=== PATIENT | male | born 1935 | race Caucasian/White ===

== ENCOUNTER → 2016-07-14 | Outpatient (CLI) | payer BC, MEDICARE ==
--- NOTE | 2016-07-14 15:05 | XR ---
EXAMINATION TYPE: 3 views cervical spine plus flexion extension views DATE OF EXAM: 07/14/2016 11:06 AM COMPARISON: 07/06/2015 HISTORY: 80-year-old male cervical intervertebral disc degeneration, injury and surgery about 3 years ago. TECHNIQUE: 5 views FINDINGS: There is bulky endplate spondylosis especially anteriorly. Multilevel uncovertebral joint and facet a rthropathy is present. No predental space widening. The cervicothoracic junction is obscured by the p atient's shoulders and not assessed. There may be some interbody ankylosis across C3-C4 and across C5 -C6 not clearly demonstrated on prior exam. Bulky anterior bridging endplate spondylosis across C4-C5 . Of the visualized portions of the cervical spine. No dynamic subluxation is seen. Patient seems to have a fixed kyphotic curvature of the cervical spine. IMPRESSION: Multilevel advanced spondylotic change. There may be interbody ankylosis across C3-C4 and C5-C6 not c learly seen previously. There is a fixed kyphotic curvature without dynamic subluxation seen. Note th at the cervicothoracic junction is obscured by the patient's shoulders and not assessed.
== END | disposition home or self-care (01) ==
LOC: RADXRMAIN 10:38
PROVIDERS: ATTEND Neurological Surgery
DX: M47.812 Spondylosis without myelopathy or radiculopathy, cervical region (principal); M40.202 Unspecified kyphosis, cervical region
CPT/HCPCS: 72052

== ENCOUNTER → 2016-08-17 | Outpatient (CLI) | payer BC, MEDICARE ==
--- NOTE | 2016-08-17 10:28 | MR ---
EXAMINATION TYPE: MR cervical spine wo con DATE OF EXAM: 08/17/2016 COMPARISON: Prior cervical MRI 10/23/2015, CT cervical spine 10/20/2015 HISTORY: Cervical spondylosis, Neck pain x 1 1/2 years TECHNIQUE: Multiplanar, multisequence images of the cervical spine were acquired. C2-C3: No evidence for degenerative disc disease. No disc bulge/herniation or protrusion. No Canal stenosis. Foramina are patent bilaterally. C3-C4: No evidence for degenerative disc disease. No disc bulge/herniation or protrusion. No Canal stenosis. Foramina are stable, some mild bilateral foraminal encroachment is noted. C4-C5: Small posterior disc herniation causes slight anterior mass effect on the thecal sac. Foramina l encroachment is present bilaterally and is stable. C5-C6: Some mild right-sided foraminal encroachment is present. Small posterior broad-based disc bulg e causes slight anterior mass effect on the thecal sac. C6-C7: Bilateral foraminal encroachment shows a stable appearance. No disc herniation. C7-T1: No evidence for degenerative disc disease. No disc bulge/herniation or protrusion. No Canal stenosis. Foramina are patent bilaterally. Cervical segments are intact. There is normal alignment. Cervical spinal cord is stable, foci of in creased signal are noted at work, C5 as on prior exam. Craniovertebral junction relationships are wi thin normal limits. There is multilevel spondylosis. Loss of disc height is present especially at C3 -4, C5-6, C6-7, C7-T1. Some increased signal at C3-4, C5-6 consistent with calcification. Postop burden ges are noted status post multilevel posterior decompression as on prior exam, there is no significan t spinal stenosis. There is a spinal curvature present. IMPRESSION: Essentially stable findings. 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 Multilevel foraminal encroachment. Scoliosis. Postop changes.
== END | disposition home or self-care (01) ==
LOC: RADMRIMAIN 08:36
PROVIDERS: ATTEND Neurological Surgery
DX: G95.89 Other specified diseases of spinal cord (principal); M41.82 Other forms of scoliosis, cervical region; M47.812 Spondylosis without myelopathy or radiculopathy, cervical region; Z98.890 Other specified postprocedural states
CPT/HCPCS: 72141

== ENCOUNTER → 2016-10-13 | Outpatient (CLI) | payer MEDICARE, BC ==
--- NOTE | 2016-10-13 09:34 | US ---
EXAMINATION TYPE: US kidneys/renal and bladder DATE OF EXAM: 10/13/2016 COMPARISON: NONE CLINICAL HISTORY: 81-year-old male R31.9 Hematuria. Patient states microscopic hematuria, no known hi story of renal complications TECHNIQUE: Multiple sonographic images of the kidneys and bladder were obtained. FINDINGS: Right Kidney: 11.9 x 5.7 x 5.0 cm without hydronephrosis. There is a shadowing echogenic focus measu ring 6 mm in the midpole suggestive of a nonobstructive calculus. Left Kidney: 12.4 x 5.9 x 4.4 cm with mild hydronephrosis. Bladder: Partial distention limits its evaluation. Bilateral Jets seen: Yes IMPRESSION: 1. Mild left-sided hydronephrosis. We note that the left ureteral jet is visualized. 2. 6 mm nonobstructive calculus mid pole right kidney.
== END | disposition home or self-care (01) ==
LOC: RADUSWWP 08:54
PROVIDERS: ATTEND Internal Medicine
DX: N20.0 Calculus of kidney (principal); N13.30 Unspecified hydronephrosis
CPT/HCPCS: 76770

== ENCOUNTER → 2016-10-27 | Outpatient (CLI) | payer MEDICARE, BC ==
[2016-10-27 13:33] LABS: Blood Urea Nitrogen 18 mg/dL (9-20); Non-African American GFR(MDRD) >60 (>60 ml/min/1.73 sqM)
--- NOTE | 2016-10-27 15:06 | CT ---
EXAMINATION TYPE: CT urogram wo/w con DATE OF EXAM: 10/27/2016 COMPARISON: NONE HISTORY: Renal stone Hydronephrosis CT DLP: 1907 mGycm, Automated Exposure Control for Dose Reduction was Utilized. CONTRAST: CT scan of the abdomen and pelvis is performed without oral and without and with IV Contrast, patient injected with 100 ml mL of Omnipaque 300. Three-dimensional volume acquired imaging was performed at the CT scanner. FINDINGS: Visualized portions of the lungs are clear. There is no pleural or pericardial fluid. The h eart is not enlarged. There is a small hiatal hernia. Within the abdomen, the liver spleen and gallbladder are normal. Both adrenal glands are normal. There are parapelvic cysts on the left. No renal calcifications are seen. Both kidneys demonstrate fu nction and are otherwise morphologically normal. Entire right ureter was not visualized. 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 There is fusion of both SI joints. No bony destructive lesi on is seen. The pancreas is unremarkable. The bladder is unremarkable. There is no significant diverticular change and there is no radiographic evidence of diverticulitis. The appendix is not visualized. Small bowel loops are normal. There is no free fluid and no free air identified. IMPRESSION: 1. NO EVIDENCE OF A RENAL MASS. THERE IS NO EVIDENCE OF HYDRONEPHROSIS OR NEPHROLITHIASIS. 2. PARAPELVIC CYSTS IN THE LEFT KIDNEY. 3. INCOMPLETE VISUALIZATION OF THE RIGHT URETER. 4. SMALL HIATAL HERNIA. 5. DIFFUSE DEGENERATIVE DISC DISEASE AND OTHER DEGENERATIVE CHANGES IN THE SPINE.
== END | disposition home or self-care (01) ==
LOC: RADCTMAIN 12:53
PROVIDERS: ATTEND Internal Medicine
DX: N28.1 Cyst of kidney, acquired (principal); K44.9 Diaphragmatic hernia without obstruction or gangrene
CPT/HCPCS: 82565; 84520; 74178; 36415; 74400; Q9967

== ENCOUNTER → 2017-07-31 | Outpatient (CLI) | payer MEDICARE, BC ==
--- NOTE | 2017-08-01 09:56 | P.ARTDOP ---
Arterial Doppler LOWER EXTREMITY ARTERIAL DOPPLER: DATE OF SERVICE: 07/31/2017 Reason for study: Bilateral claudication. Doppler waveforms: Multiphasic bilaterally throughout. Pulse volume recording: Normal configuration. Pressure gradients: Only at the foot level. Ankle-brachial indices: Greater than 1 bilaterally. Toe pressures: 70 on the right, 67 on the left Impression: Normal flow patterns proximally. Decreased toe pressures probably related to vasospastic phenomenon. Distal disease cannot be excluded but unlikely. Clinical correlation recommended..
== END | disposition home or self-care (01) ==
LOC: RADUSWWP 12:07
PROVIDERS: ATTEND Internal Medicine
DX: I73.9 Peripheral vascular disease, unspecified (principal)
CPT/HCPCS: 93923

== ENCOUNTER → 2017-08-11 | Outpatient (CLI) | payer MEDICARE, BC ==
--- NOTE | 2017-08-11 11:44 | MR ---
EXAMINATION TYPE: MR lumbar spine wo con DATE OF EXAM: 08/11/2017 COMPARISON: NONE HISTORY: Intervertebral disc degeneration, lumbar TECHNIQUE: Multiplanar, multisequence images of the lumbar spine were acquired. L1-L2: Posterior extension endplate disc complex causes anterior mass effect on the thecal sac. There is facet arthropathy change. No definite foraminal encroachment. Mild central stenosis. L2-L3: Posterior extension of endplate disc complex causes anterior mass effect on the thecal sac. Th ere is a trefoil appearance of the thecal sac, facet arthropathy is noted bilaterally. On mild centra l stenosis. L3-L4: Posterior broad-based disc bulge, extension of endplate disc complex encroaches somewhat on th e foramina but causes mild anterior mass effect on the thecal sac. Facet arthropathy with hypertrophy ligamentum flavum encroaches on the lateral recesses, mild central stenosis. L4-L5: There is moderate central canal stenosis due to hypertrophic changes of the facets as well as circumferential posterior extension of endplate disc complex which also causes foraminal encroachment bilaterally. A trefoil appearance of the thecal sac is present. L5-S1: Posterior circumferential extension endplate disc complex causes anterior mass effect on the t hecal sac but no significant central stenosis, there is bilateral foraminal encroachment. Facet arthr opathy changes are also present. Lumbar segments are intact. No paraspinal masses are identified. Conus medullaris has a normal appe arance. There is multilevel spondylosis. Endplate discogenic marrow signal changes present with assoc iated loss of disc height signal, multilevel vacuum phenomenon. Retrolisthesis grade 1 L4-5, L5-S1, L 1-2. Suspect parapelvic cysts are associated with the left kidney greater than right. IMPRESSION: Degenerative disc disease, facet arthropathy, multilevel foraminal encroachment and spinal stenosis.
== END | disposition home or self-care (01) ==
LOC: RADMRIMAIN 08:38
PROVIDERS: ATTEND Internal Medicine
DX: M48.061 Spinal stenosis, lumbar region without neurogenic claudication (principal); M51.36 Other intervertebral disc degeneration, lumbar region; M46.86 Other specified inflammatory spondylopathies, lumbar region; M46.87 Other specified inflammatory spondylopathies, lumbosacral region
CPT/HCPCS: 72148

== ENCOUNTER → 2019-11-14 | Outpatient (CLI) | payer MEDICARE, BC ==
--- NOTE | 2019-11-14 14:15 | XR ---
EXAMINATION TYPE: XR ribs bilat w pa chest xray DATE OF EXAM: 11/14/2019 COMPARISON: NONE HISTORY: Pain TECHNIQUE: Single view of the chest 8 views of the ribs are submitted. FINDINGS: The lungs are clear. No Evidence for pneumothorax. No evidence for focal contusion. Medi astinal structures are midline. Evaluation of the ribs fails to demonstrate evidence for displaced r ib fracture or secondary sign of rib fracture. IMPRESSION: Negative study
== END | disposition home or self-care (01) ==
LOC: RADXRMAIN 12:38
PROVIDERS: ATTEND Internal Medicine
DX: R07.81 Pleurodynia (principal)
CPT/HCPCS: 71111

== ENCOUNTER 2019-12-09 10:30 | Inpatient (IN) | payer MEDICARE, BC ==
[2019-12-09 11:29] LABS: Basophils % (A) 0 %; Eosinophils # (A) 0.1 k/uL (0-0.7); Eosinophils % (A) 2 %; HCT 44.3 % (39.0-53.0); HGB 15.1 gm/dL (13.0-17.5); Lymphocytes # (A) 1.6 k/uL (1.0-4.8); Lymphocytes % (A) 26 %; MCH 32.6 pg (25.0-35.0); MCHC 34.1 g/dL (31.0-37.0); MCV 95.7 fL (80.0-100.0); Mean Platelet Volume 6.9; Monocytes # (A) 0.4 k/uL (0-1.0); Monocytes % (A) 6 %; Neutrophils # (A) 3.8 k/uL (1.3-7.7); Neutrophils % (A) 64 %; Platelet Count 214 k/uL (150-450); RBC 4.63 m/uL (4.30-5.90); WBC 5.9 k/uL (3.8-10.6)
[2019-12-09] MEDS ORDERED: HEPARIN SOD,PORK IN 0.45% NACL 25,000 UNIT in 0.45% NACL 1 250ML.BAG IV SCH (11:30)
[2019-12-09] MEDS ORDERED: HEPARIN SODIUM,PORCINE 5,000 UNIT/ML 1 ML VIAL IV PRN (11:30)
[2019-12-09] MEDS ORDERED: HEPARIN SODIUM,PORCINE 5,000 UNIT/ML 1 ML VIAL IV ONE (11:30)
[2019-12-09] MEDS ORDERED: DILTIAZEM 125 MG in SODIUM CHLORIDE 0.9% 100 ML IV SCH (11:30)
--- NOTE | 2019-12-09 11:31 | XR ---
EXAMINATION TYPE: XR chest 2V DATE OF EXAM: 12/09/2019 COMPARISON: 11/14/2019 HISTORY: 84-year-old male dysrhythmia TECHNIQUE: PA and lateral views FINDINGS: The cardiomediastinal silhouette, aorta, and pulmonary vasculature are within normal limits. Lungs an d pleural spaces are clear. Bridging anterior endplate spondylosis suggesting DISH. IMPRESSION: No acute cardiopulmonary process.
[2019-12-09 11:37] LABS: Albumin 4.1 g/dL (3.5-5.0); Calcium 9.2 mg/dL (8.4-10.2); Magnesium 1.9 mg/dL (1.6-2.3); Potassium 4.3 mmol/L (3.5-5.1); Total Bilirubin 1.1 mg/dL (0.2-1.3); Total Protein 6.9 g/dL (6.3-8.2)
[2019-12-09 11:54] LABS: D-Dimer 0.5 mg/L FEU (<0.60); Prothrombin Time 10.2 sec (9.0-12.0)
--- NOTE | 2019-12-09 13:09 | ED ---
Arrhythmia/Palpitations HPI - General Chief Complaint: Arrhythmia/Palpitations Stated Complaint: Abd/Back Pain, Irregular Heartbeat Time Seen by Provider: 12/09/19 11:00 Source: patient, RN/MD, RN notes reviewed Mode of arrival: ambulatory Limitations: no limitations - History of Present Illness Initial Comments: This is a 84-year-old male with no prior history of atrial fibrillation who was seen in his doctor's office today for left-sided chest discomfort sharp in nature. He was found have atrial fibrillation with a rapid ventricular response. Left rib pain been going on for couple days he does not recall any particular incident that triggered it. He does have a history of hypertension and high cholesterol. No thyroid disorders no other complaints or modifying factors at this time MD Complaint: rapid heart beat, atrial fibrillation - Related Data Home Medications Medication Instructions Recorded Confirmed Doxazosin [Cardura] 4 mg PO BID 11/21/14 12/09/19 Atorvastatin [Lipitor] 20 mg PO HS 12/09/19 12/09/19 Pantoprazole Sodium [Protonix] 40 mg PO DAILY 12/09/19 12/09/19 Allergies Allergy/AdvReac Type Severity Reaction Status Date / Time No Known Allergies Allergy Verified 12/09/19 11:15 Review of Systems ROS Statement: Those systems with pertinent positive or pertinent negative responses have been documented in the HPI. ROS Other: All systems not noted in ROS Statement are negative. Past Medical History Past Medical History: Hypertension Additional Past Medical History / Comment(s): irregular heart beat History of Any Multi-Drug Resistant Organisms: None Reported Past Surgical History: Joint Replacement Additional Past Surgical History / Comment(s): bilateral knee replacements Past Psychological History: No Psychological Hx Reported Smoking Status: Never smoker Past Alcohol Use History: Daily Past Drug Use History: None Reported General Exam - General Exam Comments Initial Comments: This is a well-developed well-nourished awake alert oriented 3 male Limitations: no limitations General appearance: alert, in no apparent distress Head exam: Present: atraumatic, normocephalic, normal inspection Eye exam: Present: normal appearance, PERRL, EOMI. Absent: scleral icterus, conjunctival injection, periorbital swelling ENT exam: Present: normal exam, mucous membranes moist Neck exam: Present: normal inspection. Absent: tenderness, meningismus, lymphadenopathy Respiratory exam: Present: normal lung sounds bilaterally. Absent: respiratory distress, wheezes, rales, rhonchi, stridor Cardiovascular Exam: Present: tachycardia, irregular rhythm. Absent: systolic murmur, diastolic murmur, rubs, gallop, clicks GI/Abdominal exam: Present: soft, normal bowel sounds. Absent: distended, tenderness, guarding, rebound, rigid Extremities exam: Present: normal inspection, full ROM, normal capillary refill. Absent: tenderness, pedal edema, joint swelling, calf tenderness Back exam: Present: normal inspection Neurological exam: Present: alert, oriented X3, CN II-XII intact Psychiatric exam: Present: normal affect, normal mood Skin exam: Present: warm, dry, intact, normal color. Absent: rash Course Vital Signs 12/09/19 10:40 Temperature 98.1 F Pulse Rate 67 Respiratory 18 Rate Blood Pressure 155/87 O2 Sat by Pulse 100 Oximetry - Reevaluation(s) Reevaluation #1: 12/09/19 13:10 Reevaluation patient reveals some improvement in the rate he still nature fibrillation he is asymptomatic otherwise. EKG Findings - EKG Results: EKG: interpreted by ANDIE (Atrial fibrillation with a rapid ventricular response rate of 118 QRS 80 QT since QTC 312/[address]-T wave changes) Medical Decision Making - Medical Decision Making I had previously discuss case with Dr. Harden the patient d-dimer is negative the patient will be admitted with cardiology consultation also echocardiogram to be ordered - Lab Data Result diagrams: 12/09/19 10:46 12/09/19 10:46 Lab Results 12/09/19 12/09/19 12/09/19 Range/Units 10:46 10:46 10:46 WBC 5.9 (3.8-10.6) k/uL RBC 4.63 (4.30-5.90) m/uL Hgb 15.1 (13.0-17.5) gm/dL Hct 44.3 (39.0-53.0) % MCV 95.7 (80.0-100.0) fL MCH 32.6 (25.0-35.0) pg MCHC 34.1 (31.0-37.0) g/dL RDW 12.0 (11.5-15.5) % Plt Count 214 (150-450) k/uL Neutrophils % 64 % Lymphocytes % 26 % Monocytes % 6 % Eosinophils % 2 % Basophils % 0 % Neutrophils # 3.8 (1.3-7.7) k/uL Lymphocytes # 1.6 (1.0-4.8) k/uL Monocytes # 0.4 (0-1.0) k/uL Eosinophils # 0.1 (0-0.7) k/uL Basophils # 0.0 (0-0.2) k/uL PT 10.2 (9.0-12.0) sec INR 1.0 (<1.2) APTT 25.0 (22.0-30.0) sec D-Dimer 0.50 (<0.60) mg/L FEU Sodium 138 (137-145) mmol/L Potassium 4.3 (3.5-5.1) mmol/L Chloride 108 H (98-107) mmol/L Carbon Dioxide 23 (22-30) mmol/L Anion Gap 7 mmol/L BUN 15 (9-20) mg/dL Creatinine 1.01 (0.66-1.25) mg/dL Est GFR (CKD-EPI)AfAm 80 (>60 ml/min/1.73 sqM) Est GFR (CKD-EPI)NonAf 69 (>60 ml/min/1.73 sqM) Glucose 125 H (74-99) mg/dL Calcium 9.2 (8.4-10.2) mg/dL Magnesium 1.9 (1.6-2.3) mg/dL Total Bilirubin 1.1 (0.2-1.3) mg/dL AST 30 (17-59) U/L ALT 27 (4-49) U/L Alkaline Phosphatase 78 (38-126) U/L Creatine Kinase 168 (55-170) U/L Troponin I (0.000-0.034) ng/mL Total Protein 6.9 (6.3-8.2) g/dL Albumin 4.1 (3.5-5.0) g/dL TSH 3.640 (0.465-4.680) mIU/L 12/09/19 Range/Units 10:46 WBC (3.8-10.6) k/uL RBC (4.30-5.90) m/uL Hgb (13.0-17.5) gm/dL Hct (39.0-53.0) % MCV (80.0-100.0) fL MCH (25.0-35.0) pg MCHC (31.0-37.0) g/dL RDW (11.5-15.5) % Plt Count (150-450) k/uL Neutrophils % % Lymphocytes % % Monocytes % % Eosinophils % % Basophils % % Neutrophils # (1.3-7.7) k/uL Lymphocytes # (1.0-4.8) k/uL Monocytes # (0-1.0) k/uL Eosinophils # (0-0.7) k/uL Basophils # (0-0.2) k/uL PT (9.0-12.0) sec INR (<1.2) APTT (22.0-30.0) sec D-Dimer (<0.60) mg/L FEU Sodium (137-145) mmol/L Potassium (3.5-5.1) mmol/L Chloride (98-107) mmol/L Carbon Dioxide (22-30) mmol/L Anion Gap mmol/L BUN (9-20) mg/dL Creatinine (0.66-1.25) mg/dL Est GFR (CKD-EPI)AfAm (>60 ml/min/1.73 sqM) Est GFR (CKD-EPI)NonAf (>60 ml/min/1.73 sqM) Glucose (74-99) mg/dL Calcium (8.4-10.2) mg/dL Magnesium (1.6-2.3) mg/dL Total Bilirubin (0.2-1.3) mg/dL AST (17-59) U/L ALT (4-49) U/L Alkaline Phosphatase (38-126) U/L Creatine Kinase (55-170) U/L Troponin I <0.012 (0.000-0.034) ng/mL Total Protein (6.3-8.2) g/dL Albumin (3.5-5.0) g/dL TSH (0.465-4.680) mIU/L - Radiology Data Radiology results: report reviewed (Imaging reviewed no acute findings), image reviewed Critical Care Time Critical Care Time: Yes Total Critical Care Time: 35 Critical Care Time: Critical care time includes initial presentation with history physical labs x- rays multiple reevaluation the patient to responsive therapy discussion with the admitting physician review of old charting admission orders documentation of the above Disposition Clinical Impression: Rapid atrial fibrillation, Atypical chest pain Disposition: ADMITTED IP TO THIS [facility] Condition: Fair Referrals: Melecio Harden MD [Primary Care Provider] - 1-2 days
[2019-12-09] MEDS ORDERED: NALOXONE 0.4 MG/ML 1 ML VIAL IV PRN (13:12)
[2019-12-09] MEDS: DILTIAZEM 125 MG in SODIUM CHLORIDE 0.9% 100 ML IV SCH (13:51)
[2019-12-09] MEDS ORDERED: INFLUENZA VACCINE (6 MOS+) 60 MCG/0.5 ML SYRINGE IM ONE (13:57)
--- NOTE | 2019-12-09 15:28 | P.HPIM ---
History of Present Illness H&P Date: 12/09/19 Chief Complaint: Atrial fibrillation This is an 84-year-old male patient of Dr. Harden with past medical history of hypertension, hyperlipidemia, gastroesophageal reflux disease, generalized osteoarthritis status post bilateral knee replacements, benign prostatic hypertrophy, daily alcohol use. Patient states about 3-4 weeks ago he was having some left sided chest discomfort and we'll completed a Medrol Dosepak. He was in the office yesterday for recheck and it was noted he had irregular heartbeat and EKG was done which confirmed atrial fibrillation. Patient was sent into [facility] emergency center for evaluation. Patient denies having any palpitations, lightheadedness, dizziness, chest pain, shortness of breath, cough, and no fever or chills. EKG was atrial fibrillation with heart rate of 118. Chest x-ray showed no acute cardiac pulmonary process. CBC was unremarkable. Blood sugar 125 otherwise CMP unremarkable. Troponin 0.012. TSH 3.640. Patient was started on Cardizem drip, heparin drip and admitted to the cardiac stepdown unit, cardiology consult requested. Patient does not have a policewoman. He has never had a stress test nor heart catheterization. Review of Systems Constitutional: Denies anorexia, Denies chills, Denies daytime sleepiness, Denies fatigue, Denies fever, Denies lethargy, Denies malaise, Denies poor appetite, Denies weakness Eyes: denies blurred vision, denies pain Ears, nose, mouth and throat: Denies dysphagia, Denies headache, Denies nasal congestion, Denies nasal discharge, Denies sore throat, Denies vertigo Cardiovascular: Reports irregular heart beat, Denies chest pain, Denies dyspnea on exertion, Denies edema, Denies leg edema, Denies lightheadedness, Denies orthopnea, Denies palpitations, Denies paroxysmal nocturnal dyspnea, Denies shortness of breath, Denies syncope Respiratory: Denies cough, Denies cough with sputum, Denies dyspnea, Denies excessive sputum, Denies hemoptysis, Denies home oxygen, Denies respiratory infections, Denies sleep apnea, Denies wheezing Gastrointestinal: Denies abdominal pain, Denies bloating, Denies diarrhea, Denies loss of appetite, Denies nausea, Denies vomiting Genitourinary: Denies dysuria, Denies urinary frequency, Denies urinary retention Musculoskeletal: Denies frequent falls, Denies gait dysfunction, Denies muscle weakness, Denies myalgias Integumentary: Denies pruritus, Denies rash, Denies wounds Neurological: Denies change in mentation, Denies change in speech, Denies confusion, Denies headaches, Denies numbness, Denies seizures, Denies weakness Psychiatric: Denies anxiety, Denies depression Endocrine: Denies fatigue, Denies weight change Past Medical History Past Medical History: GERD/Reflux, Hyperlipidemia, Hypertension, Osteoarthritis (OA), Prostate Disorder Additional Past Medical History / Comment(s): Arthritis in multiple joints, chr onic low back and cervical pain, BPH History of Any Multi-Drug Resistant Organisms: None Reported Past Surgical History: Joint Replacement, Orthopedic Surgery Additional Past Surgical History / Comment(s): Bilateral knee arth roscopies/arthroplasties, laminectomy C3 through C7, colonoscopy. Past Anesthesia/Blood Transfusion Reactions: No Reported Reaction Smoking Status: Never smoker Additional Past Alcohol Use History / Comment(s): Patient is a lifelong nonsmoker. He states he drinks an average of 2 beers per day. He denies any marijuana or street drug use. He lives at home with his . He does not have cane or walker for ambulation. He does not use oxygen, nebulizer, CPAP. - Past Family History Father History Unknown: Yes Additional Family Medical History / Comment(s): The patient's father has passed. He does not know much of his history other then he had alcohol abuse issues. Mother Family Medical History: CVA/TIA Additional Family Medical History / Comment(s): Mother had a stroke after a fall while in her 90s and passed subsequently. Sister(s) Additional Family Medical History / Comment(s): Patient has 1 sister. She is living with history of dementia. Patient does not have any brothers. Patient has one son with no major medical problems and one daughter with celiac and osteoporosis Medications and Allergies Home Medications Medication Instructions Recorded Confirmed Type Doxazosin [Cardura] 4 mg PO BID 11/21/14 12/09/19 History Atorvastatin [Lipitor] 20 mg PO HS 12/09/19 12/09/19 History Pantoprazole Sodium [Protonix] 40 mg PO DAILY 12/09/19 12/09/19 History Allergies Allergy/AdvReac Type Severity Reaction Status Date / Time No Known Allergies Allergy Verified 12/09/19 11:15 Physical Exam Vitals: Vital Signs Temp Pulse Resp BP Pulse Ox 12/09/19 13:19 98.0 F 93 17 136/81 98 12/09/19 10:40 98.1 F 67 18 155/87 100 Intake and Output 12/09/19 12/09/19 12/09/19 06:59 14:59 22:59 Other: Weight 74.843 kg PHYSICAL EXAMINATION Gen: This is an 84-year-old male. He is resting in bed and appears to be comfortable and in no acute distress. is at bedside. HEENT: Head is atraumatic, normocephalic. Pupils equal, round. Sclerae is anicteric. Oral mucous members are moist. NECK: Supple. No JVD. No lymphadenopathy. No thyromegaly. LUNGS: Clear to auscultation. No wheezes or rhonchi. No intercostal retractions. HEART: Irregularly irregular rate and rhythm. No murmur. Heart rate is controlled. ABDOMEN: Soft. Bowel sounds are present. No masses. No tenderness. EXTREMITIES: No pedal edema. No calf tenderness. Dorsalis pedis +2 bilaterally. NEUROLOGICAL: Patient is awake, alert and oriented x3. Cranial nerves 2 through 12 are grossly intact. Results CBC & Chem 7: 12/09/19 10:46 12/09/19 10:46 Labs: Abnormal Lab Results - Last 24 Hours (Table) 12/09/19 Range/Units 10:46 Chloride 108 H (98-107) mmol/L Glucose 125 H (74-99) mg/dL Thrombosis Risk Factor Assmnt - DVT/VTE Prophylaxis DVT/VTE Prophylaxis: Pharmacologic Prophylaxis ordered - Choose All That Apply Any of the Below Risk Factors Present?: Yes Other Risk Factors: Yes Each Risk Factor Represents 3 Points: Age 75 years or older Other congenital or acquired thrombophilia - If yes, enter type in comment: No Thrombosis Risk Factor Assessment Total Risk Factor Score: 3 Thrombosis Risk Factor Assessment Level: Moderate Risk Assessment and Plan Plan: ASSESSMENT AND PLAN 1. New onset atrial fibrillation with RVR, paroxysmal atrial fibrillation. Patient is currently on Cardizem drip and heparin drip. Rate is currently controlled. Cardiology consult and echocardiogram. 2. Hyperlipidemia. Continue Lipitor 20 mg daily. 3. Hypertension. Continue Cardura. 4. Benign prostatic hypertrophy. Monitor for urinary retention. Continue Cardura 4 mg daily. 5. Gastroesophageal reflux disease and GI prophylaxis. Continue Protonix 40 mg daily.. 6. Daily alcohol use. Monitor closely for DTs. 7. DVT prophylaxis. Heparin drip. Patient will be admitted to the hospital for a minimum of 2 night stay. Discharge plan: home. Impression and plan of care have been directed as dictated by the signing physician. Sherry Godoy nurse practitioner acting as scribe for signing phys ician.
[2019-12-09] MEDS: METOPROLOL TARTRATE 25 MG TAB PO SCH (16:12)
[2019-12-09] MEDS: DOXAZOSIN 4 MG TAB PO SCH (20:45)
[2019-12-09] MEDS ORDERED: ATORVASTATIN 20 MG TAB PO SCH (21:00)
[2019-12-10] MEDS: DILTIAZEM 125 MG in SODIUM CHLORIDE 0.9% 100 ML IV SCH (03:39)
[2019-12-10] MEDS ORDERED: PANTOPRAZOLE 40 MG TABLET PO SCH (07:30)
[2019-12-10 07:49] LABS: Basophils % (A) 1 %; Eosinophils # (A) 0.2 k/uL (0-0.7); Eosinophils % (A) 3 %; HCT 39.1 % (39.0-53.0); HGB 13.4 gm/dL (13.0-17.5); Lymphocytes # (A) 2.4 k/uL (1.0-4.8); Lymphocytes % (A) 37 %; MCH 33.3 pg (25.0-35.0); MCHC 34.2 g/dL (31.0-37.0); MCV 97.3 fL (80.0-100.0); Mean Platelet Volume 7.1; Monocytes # (A) 0.4 k/uL (0-1.0); Monocytes % (A) 6 %; Neutrophils # (A) 3.3 k/uL (1.3-7.7); Neutrophils % (A) 52 %; Platelet Count 206 k/uL (150-450); RBC 4.02 m/uL (4.30-5.90); RDW 12.2 % (11.5-15.5); WBC 6.3 k/uL (3.8-10.6)
[2019-12-10] MEDS: DOXAZOSIN 4 MG TAB PO SCH (09:05)
[2019-12-10] MEDS ORDERED: METOPROLOL TARTRATE 12.5 MG TAB PO SCH (09:15)
[2019-12-10] MEDS: METOPROLOL TARTRATE 25 MG TAB PO SCH (09:28)
[2019-12-10 09:33] VITALS: PULSE 73
--- NOTE | 2019-12-10 10:44 | P.CRDCN ---
History of Present Illness Consult date: 12/10/19 History of present illness: CHIEF COMPLAINT: new-onset A. fib HISTORY OF PRESENT ILLNESS: This is a 84-year old male with a past medical history significant for hypertension and hyperlipidemia. Patient does not follow with a safety engineer. We have been asked to see the patient in consultation for new-onset atrial fibrillation. Patient states he has been having some left sided back pain for approximately one month. He originally saw his primary care physician for this and was placed on steroids. He went back to his primary care physician yesterday for a follow-up. He had an EKG completed at that time revealing atrial fibrillation. Patient denies previous history of atrial fibrillation. He currently denies chest pain or pressure. Denies shortness of breath. Denies palpitations. DIAGNOSTICS: EKG reveals atrial fibrillation with rapid ventricular rate Chest xray negative for acute process Laboratory data: WBC 6.3. Hemoglobin 13.4. Platelet count 206. D-dimer 0.5. Sodium 138. Potassium 4.3. BUN 15. Creatinine 1.01. Magnesium 1.9. TSH 3.640 Current home cardiac medications include Lipitor 20 mg daily and Cardura 4 mg twice a day REVIEW OF SYSTEMS: At the time of my exam: CONSTITUTIONAL: Denies fever or chills. HEENT: Denies blurred vision, vision changes, or eye pain. Denies hemoptysis CARDIOVASCULAR: Denies chest pain, orthopnea, PND or palpitations RESPIRATORY: No shortness of breath. GASTROINTESTINAL: Denies abdominal pain. Denies nausea or vomiting. HEMATOLOGIC: Denies bleeding disorders. GENITOURINARY: Denies any blood in urine. SKIN: Denies pruitis. Denies rash. PHYSICAL EXAM: VITAL SIGNS: Reviewed. GENERAL: Well-developed in no acute distress. HEENT: Head is normocephalic. Pupils are equal, round. Sclerae anicteric. Mucous membranes of the mouth are moist. Neck supple. No JVD or thyromegaly LUNGS: Respirations even and unlabored. Lungs essentially clear to auscultation bilaterally. HEART: Regular rate and rhythm. S1 and S2 heard. ABDOMEN: Soft. Nondistended. Nontender. EXTREMITIES: Normal range of motion. No clubbing or cyanosis. Peripheral pulses intact. No lower extremity edema NEUROLOGIC: Awake and alert. Oriented x 3. ASSESSMENT: New-onset paroxysmal atrial fibrillation with RVR Hypertension Hyperlipidemia PLAN: Obtain 2-D echo to assess cardiac structure and function Continue Cardura and Lipitor Patient has since converted to sinus mechanism with some bradycardia over night. Decrease metoprolol to 12.5 mg twice a day Case management checked coverage for anticoagulation. Patient agreeable to Xarelto cost. Continue IV heparin until patient receives a dose of Xarelto Patient may be discharged home today from a cardiac perspective. He is to follow up outpatient Nurse practitioner note has been reviewed by physician. Signing provider agrees with the documented findings, assessment, and plan of care. Past Medical History Past Medical History: GERD/Reflux, Hyperlipidemia, Hypertension, Osteoarthritis (OA), Prostate Disorder Additional Past Medical History / Comment(s): Arthritis in multiple joints, chronic low back and cervical pain, BPH History of Any Multi-Drug Resistant Organisms: None Reported Past Surgical History: Joint Replacement, Orthopedic Surgery Additional Past Surgical History / Comment(s): Bilateral knee arthroscopies/arthroplasties, laminectomy C3 through C7, colonoscopy. Past Anesthesia/Blood Transfusion Reactions: No Reported Reaction Smoking Status: Never smoker Additional Past Alcohol Use History / Comment(s): Patient is a lifelong nonsmoker. He states he drinks an average of 2 beers per day. He denies any marijuana or street drug use. He lives at home with his . He does not have cane or walker for ambulation. He does not use oxygen, nebulizer, CPAP. - Past Family History Father History Unknown: Yes Additional Family Medical History / Comment(s): The patient's father has passed. He does not know much of his history other then he had alcohol abuse issues. Mother Family Medical History: CVA/TIA Additional Family Medical History / Comment(s): Mother had a stroke after a fall while in her 90s and passed subsequently. Sister(s) Additional Family Medical History / Comment(s): Patient has 1 sister. She is living with history of dementia. Patient does not have any brothers. Patient has one son with no major medical problems and one daughter with celiac and osteoporosis Medications and Allergies Home Medications Medication Instructions Recorded Confirmed Type Doxazosin [Cardura] 4 mg PO BID 11/21/14 12/09/19 History Atorvastatin [Lipitor] 20 mg PO HS 12/09/19 12/09/19 History Pantoprazole Sodium [Protonix] 40 mg PO DAILY 12/09/19 12/09/19 History Rivaroxaban [Xarelto] 20 mg PO DAILY #30 tab 12/10/19 Rx Allergies Allergy/AdvReac Type Severity Reaction Status Date / Time No Known Allergies Allergy Verified 12/09/19 11:15 Physical Exam Vitals: Vital Signs Temp Pulse Pulse Resp BP BP Pulse Ox 12/10/19 08:00 97.5 F L 73 14 166/72 100 12/10/19 03:52 98.2 F 68 16 138/67 95 12/10/19 00:47 98.4 F 50 L 16 121/55 99 12/09/19 20:00 98.5 F 59 L 16 138/64 96 12/09/19 15:18 97.6 F 90 14 132/81 97 12/09/19 13:19 98.0 F 93 17 136/81 98 12/09/19 10:40 98.1 F 67 18 155/87 100 Intake and Output 12/09/19 12/10/19 12/10/19 22:59 06:59 14:59 Intake Total 480 467 120 Balance 480 467 120 Intake: Intake, IV Titration 107 Amount Heparin Sod,Pork in 0.45% 107 NaCl 25,000 unit In 0.45 % NaCl 1 250ml.bag @ 12 UNITS/KG/HR 8.981 mls/hr IV .Q24H [facility] Rx#: [id number] Oral 480 360 120 Other: # Voids 1 1 0 # Bowel Movements 0 Weight 75 kg Results 12/10/19 06:29 12/09/19 10:46 Cardiac Enzymes 12/09/19 12/09/19 Range/Units 10:46 10:46 AST 30 (17-59) U/L Troponin I <0.012 (0.000-0.034) ng/mL Coagulation 12/09/19 12/09/19 12/10/19 Range/Units 10:46 17:01 06:29 PT 10.2 (9.0-12.0) sec APTT 25.0 58.6 H 55.2 H (22.0-30.0) sec CBC 12/09/19 12/10/19 Range/Units 10:46 06:29 WBC 5.9 6.3 (3.8-10.6) k/uL RBC 4.63 4.02 L (4.30-5.90) m/uL Hgb 15.1 13.4 (13.0-17.5) gm/dL Hct 44.3 39.1 (39.0-53.0) % Plt Count 214 206 (150-450) k/uL Comprehensive Metabolic Panel 12/09/19 Range/Units 10:46 Sodium 138 (137-145) mmol/L Potassium 4.3 (3.5-5.1) mmol/L Chloride 108 H (98-107) mmol/L Carbon Dioxide 23 (22-30) mmol/L BUN 15 (9-20) mg/dL Creatinine 1.01 (0.66-1.25) mg/dL Glucose 125 H (74-99) mg/dL Calcium 9.2 (8.4-10.2) mg/dL AST 30 (17-59) U/L ALT 27 (4-49) U/L Alkaline Phosphatase 78 (38-126) U/L Total Protein 6.9 (6.3-8.2) g/dL Albumin 4.1 (3.5-5.0) g/dL Current Medications Generic Name Dose Route Start Last Admin Trade Name Freq PRN Reason Stop Dose Admin Atorvastatin Calcium 20 mg 12/09/19 21:00 12/09/19 20:45 Atorvastatin 20 Mg Tab PO 20 mg HS TAURUS Administration Doxazosin Mesylate 4 mg 12/09/19 21:00 12/10/19 09:05 Doxazosin 4 Mg Tab PO 4 mg BID TAURUS Administration Heparin Sodium (Porcine) 0 unit 12/09/19 11:30 Heparin Sodium,Porcine 5,000 Unit/Ml 1 Ml Vial IV PER PROTOCOL PRN Low PTT Protocol Heparin Sodium/Sodium Chloride 250 mls @ 8.981 mls/hr 12/09/19 11:30 12/09/19 12:18 25,000 unit/ Sodium Chloride IV 12 units/kg/hr .Q24H TAURUS 8.981 mls/hr Administration Protocol 12 UNITS/KG/HR Metoprolol Tartrate 12.5 mg 12/10/19 09:15 12/10/19 09:21 Metoprolol Tartrate 12.5 Mg Tab PO 12.5 mg BID TAURUS Administration Naloxone HCl 0.2 mg 12/09/19 13:12 Naloxone 0.4 Mg/Ml 1 Ml Vial IV Q2M PRN Opioid Reversal Pantoprazole Sodium 40 mg 12/10/19 07:30 12/10/19 06:39 Pantoprazole 40 Mg Tablet PO 40 mg AC-[id number] [facility] Administration Intake and Output 12/09/19 12/10/19 12/10/19 22:59 06:59 14:59 Intake Total 480 467 120 Balance 480 467 120 Intake: Intake, IV Titration 107 Amount Heparin Sod,Pork in 0.45% 107 NaCl 25,000 unit In 0.45 % NaCl 1 250ml.bag @ 12 UNITS/KG/HR 8.981 mls/hr IV .Q24H [facility] Rx#: [id number] Oral 480 360 120 Other: # Voids 1 1 0 # Bowel Movements 0 Weight 75 kg 12/10/19 06:29 12/09/19 10:46
--- NOTE | 2019-12-10 12:14 | ECHOF ---
Referral Reason:Atypical chest pain, rapid atrial fibrillationSe MEASUREMENTS -------- HEIGHT: 170.2 cm WEIGHT: 74.8 kg BP: 138/67 RVIDd: 2.9 cm (< 3.3) IVSd: 1.2 cm (0.6 - 1.1) LVIDd: 3.3 cm (3.9 - 5.3) LVPWd: 1.2 cm (0.6 - 1.1) IVSs: 1.6 cm LVIDs: 2.0 cm LVPWs: 1.6 cm LAESV Index (A-L): 35.38 ml/m Ao Diam: 2.7 cm (2.0 - 3.7) AV Cusp: 1.7 cm (1.5 - 2.6) LA Diam: 3.5 cm (2.7 - 3.8) MV EXCURSION: 14.881 mm (> 18.000) MV EF SLOPE: 66 mm/s (70 - 150) EPSS: 0.2 cm MV E Ti: 0.93 m/s MV DecT: 202 ms MV A Ti: 0.48 m/s MV E/A Ratio: 1.95 RAP: 5.00 mmHg RVSP: 38.79 mmHg FINDINGS -------- Sinus rhythm. This was a technically adequate study. The left ventricular size is normal. There is mild concentric left ventricular hypertrophy. Overa ll left ventricular systolic function is normal with, an EF between 55 - 60 %. Normal LAP Grade 1 D iastolic Dysfunction. The right ventricle is normal in size. LA is moderately dilated 34-39 ml/m2 The right atrial size is normal. Interatrial and interventricular septum intact. There is mild aortic valve sclerosis. The mitral valve leaflets are moderately thickened. Moderate mitral regurgitation is present. The tricuspid valve appears structurally normal. Moderate tricuspid regurgitation present. There is mild pulmonary hypertension. The right ventricular systolic pressure, as measured by Doppler, is 38.79mmHg. Trace/mild (physiologic) pulmonic regurgitation. The aortic root size is normal. Normal inferior vena cava with normal inspiratory collapse consistent with estimated right atrial pre ssure of 5 mmHg. There is no pericardial effusion. CONCLUSIONS -------- 1. There is mild concentric left ventricular hypertrophy. 2. Overall left ventricular systolic function is normal with, an EF between 55 - 60 %. 3. Normal LAP Grade 1 Diastolic Dysfunction. 4. LA is moderately dilated 34-39 ml/m2 5. There is mild aortic valve sclerosis. 6. The mitral valve leaflets are moderately thickened. 7. Moderate mitral regurgitation is present. 8. Moderate tricuspid regurgitation present. 9. There is mild pulmonary hypertension. 10. Trace/mild (physiologic) pulmonic regurgitation. [employer]SACTION MANAGER: Yeny Ramirez RDCS
--- NOTE | 2019-12-10 12:56 | P.DS ---
Providers Date of admission: 12/09/19 13:12 Expected date of discharge: 12/10/19 Attending physician: Melecio Harden Consults: 12/09/19 13:12 Consult Physician Routine Consulting Provider: Kendal Hawkins Consult Reason/Comments: Rapid atrial fibrillation Do you want consulting provider notified?: Yes Primary care physician: Melecio Harden [facility] Course: This is an 84-year-old male patient of Dr. Harden with past medical history of hypertension, hyperlipidemia, gastroesophageal reflux disease, generalized osteoarthritis status post bilateral knee replacements, benign prostatic hypertrophy, daily alcohol use. Patient states about 3-4 weeks ago he was having some left sided chest discomfort and we'll completed a Medrol Dosepak. He was in the office yesterday for recheck and it was noted he had irregular heartbeat and EKG was done which confirmed atrial fibrillation. Patient was sent into [facility] emergency center for evaluation. Patient denies having any palpitations, lightheadedness, dizziness, chest pain, shortness of breath, cough, and no fever or chills. EKG was atrial fibrillation with heart rate of 118. Chest x-ray showed no acute cardiac pulmonary process. CBC was unremarkable. Blood sugar 125 otherwise CMP unremarkable. Troponin 0.012. TSH 3.640. Patient was started on Cardizem drip, heparin drip and admitted to the cardiac stepdown unit, cardiology consult requested. Patient does not have a armored car driver. He has never had a stress test nor heart catheterization. 12/09: During the night, patient hadbradycardia yesterday afternoon and Cardizem drip was stopped and patient was started on Lopressor Initially at 25 mg twice daily decreased to 12.5 mg twice daily. Patient is currently in a sinus rhythm. He denies having any complaints. No lightheadedness or dizziness. No chest pain or shortness of breath. He has been afebrile, heart rate running in the 50s to 70s, blood pressure 160/69, pulse ox 99% on room air. Repeat blood work reveals a CBC unremarkable. Patient will be discharged home today in stable condition.. Discharge diagnoses: 1. New onset atrial fibrillation with RVR, paroxysmal atrial fibrillation. 2. Hyperlipidemia. 3. Hypertension. 4. Benign prostatic hypertrophy. 5. Gastroesophageal reflux disease. 6. Daily alcohol use. Discharge plan: home. Impression and plan of care have been directed as dictated by the signing physician. Sherry Godoy nurse practitioner acting as scribe for signing physician. Patient Condition at Discharge: Good Plan - Discharge Summary Discharge Rx Participant: No New Discharge Prescriptions: New Rivaroxaban [Xarelto] 20 mg PO DAILY #30 tab Metoprolol Tartrate [Lopressor] 12.5 mg PO BID #60 dose Continue Doxazosin [Cardura] 4 mg PO BID Atorvastatin [Lipitor] 20 mg PO HS Pantoprazole Sodium [Protonix] 40 mg PO DAILY Discharge Medication List Doxazosin [Cardura] 4 mg PO BID 11/21/14 [History] Atorvastatin [Lipitor] 20 mg PO HS 12/09/19 [History] Pantoprazole Sodium [Protonix] 40 mg PO DAILY 12/09/19 [History] Metoprolol Tartrate [Lopressor] 12.5 mg PO BID #60 dose 12/10/19 [Rx] Rivaroxaban [Xarelto] 20 mg PO DAILY #30 tab 12/10/19 [Rx] Follow up Appointment(s)/Referral(s): Melecio Harden MD [Primary Care Provider] - 12/13/19 11:15 am () Kendal Hawkins MD [STAFF PHYSICIAN] - 12/19/19 3:15 pm Patient Instructions/Handouts: A-fib (Atrial Fibrillation) (DC), Safe Use of Anticoagulants (DC) Activity/Diet/Wound Care/Special Instructions: Xarelto script filled with free 30 day coupon at [facility]. Metoprolol cost is $7.15 Discharge Disposition: HOME SELF-CARE
[2019-12-10 13:11] VITALS: BP 160/69; RESP 16; TEMP 97.9
[2019-12-10] MEDS ORDERED: RIVAROXABAN 20 MG TAB PO SCH (17:30)
== END 2019-12-10 14:05 | disposition home or self-care (01) | DRG 310 ==
LOC: EC 10:30 → 3SCARD 13:12
PROVIDERS: ADMIT Internal Medicine; ATTEND Internal Medicine
DX: I48.0 Paroxysmal atrial fibrillation (principal); I10 Essential (primary) hypertension; K21.9 Gastro-esophageal reflux disease without esophagitis; E78.5 Hyperlipidemia, unspecified; M15.9 Polyosteoarthritis, unspecified; N40.0 Benign prostatic hyperplasia without lower urinary tract symptoms; Z96.653 Presence of artificial knee joint, bilateral; E78.00 Pure hypercholesterolemia, unspecified; Z79.01 Long term (current) use of anticoagulants; Z79.899 Other long term (current) drug therapy; Z82.3 Family history of stroke; Z98.890 Other specified postprocedural states; Z82.61 Family history of arthritis; Z81.1 Family history of alcohol abuse and dependence; Z81.8 Family history of other mental and behavioral disorders; Z23 Encounter for immunization
CPT/HCPCS: 36415; 71046; 80053; 82550; 83735; 84443; 84484; 85025; 85379; 85610; 85730; 90686; 93005; 93306; 96365; 96366; 96368; 99291

== ENCOUNTER 2020-10-14 11:45 | Day surgery (SDC) | payer MEDICARE, BC ==
[2020-10-12 09:45] VITALS: BMI 26.6
[~2020-10-14 11:45] MED LIST: HYDROmorphone 0.5 MG/0.5 ML SYRINGE IVP PRN; LACTATED RINGERS 1,000 ML IV SCH; LIDOCAINE 1% (10MG/ML) FOR IV START INTRADERMA PRN; ONDANSETRON 4 MG/2 ML VIAL IVP ONE
[2020-10-14 12:19] VITALS: RESP 16; TEMP 97.3
[2020-10-14] MEDS ORDERED: DEXAMETHASONE SOD PHOSPHATE 4 MG/ML 1 ML VIAL IVP ONE (12:43)
[2020-10-14] MEDS ORDERED: MIDAZOLAM 2 MG/2 ML VIAL ONE (12:53)
[2020-10-14] MEDS ORDERED: KETAMINE 10 MG/ML 20 ML VIAL ONE (12:53)
[2020-10-14] MEDS ORDERED: fentaNYL (PF) 50 MCG/ML 2 ML AMP ONE (12:53)
[2020-10-14] MEDS ORDERED: BUPIVACAINE (PF) 0.5% 30 ML VIAL SQ ONE ×2 (13:25)
--- NOTE | 2020-10-14 13:41 | P.OP ---
Date of Procedure: 10/14/20 Preoperative Diagnosis: Hypertrophied bone fifth digit right foot Postoperative Diagnosis: Same Procedure(s) Performed: Partial phalangectomy fifth digit right foot at the distal interphalangeal joint level Surgeon: Norberto Grossman Description of Procedure: On the date of surgery the patient was taken operating room in good condition tissue and placed on the operating table supine position where an IV was started and adequate IV anesthetic agents were utilized anesthesia was then further supplemented with approximately 2-1/2 mL of 0.25% plain Marcaine given in a digital block to the fifth digit of the patient's right foot The patient's right foot and ankle were then prepped and draped in usual aseptic manner and over heavy web roll padding an ankle tourniquet was placed above the malleoli of the patient's right ankle Schanz right foot and ankle were elevated and exsanguinated of blood lysing an Esmarch bandage and after 30 seconds ankle tourniquet was inflated to approximately 250 mmHg This time attention was directed to the dorsal aspect of the distal interphalangeal joint fifth digit of the right foot where an approximately point four cm dorsolinear incision was made his was deepened via sharp dissection down through the level of subcutaneous tissue layers all neurovascular structures encountered were identified isolated and were retracted and any bleeding vessels were clamped electrocauterized ostosis present on the medial side of the distal interphalangeal joint was identified and utilizing rotary ball bur site was craterized the surgical site was then copious amounts sterile saline solution incision was then closed utilizing 4-0 nylon simple interrupted suture. Adaptic 4 by fours and inch conformer's used to form a compression dressing The patient tolerated the surgery and anesthesia well was taken recovery room in good postoperative condition capillary refill is less than 3 seconds to all digits the patient's right foot.
[2020-10-14 14:21] VITALS: BP 142/67; PULSE 51
== END 2020-10-14 14:59 | disposition home or self-care (01) ==
LOC: OR 11:45
PROVIDERS: ATTEND Podiatrist Foot & Ankle Surgery
DX: M89.371 Hypertrophy of bone, right ankle and foot (principal); I10 Essential (primary) hypertension; I48.0 Paroxysmal atrial fibrillation; K21.9 Gastro-esophageal reflux disease without esophagitis; E78.5 Hyperlipidemia, unspecified; N40.0 Benign prostatic hyperplasia without lower urinary tract symptoms; Z98.1 Arthrodesis status; Z96.653 Presence of artificial knee joint, bilateral; Z79.01 Long term (current) use of anticoagulants; Z79.899 Other long term (current) drug therapy
CPT/HCPCS: 28153; J2250; J1100; J0690; J2405; J3010

== ENCOUNTER → 2021-10-28 | Outpatient (CLI) | payer MEDICARE, BC ==
--- NOTE | 2021-10-28 15:20 | XR ---
EXAMINATION TYPE: XR lumbar spine 2 or 3V DATE OF EXAM: 10/28/2021 CLINICAL HISTORY: Spondylosis. Low back pain. TECHNIQUE: Frontal and lateral images of the lumbar spine are obtained. COMPARISON: None FINDINGS: There are 5 lumbar type vertebral bodies identified. Alignment is straightened. Vertebral body heights are satisfactory. Multilevel disc space narrowing with relative sparing of L3-L4 level. Moderate to severe disc space narrowing L4-L5 and L5-S1 levels. Large bridging anterior osteophytes a t several levels along with prominent right bridging osteophyte L1-L2 and left bridging osteophyte L2 -L3 levels. Moderate to severe overlying arterial vascular calcification in the abdominal aorta. IMPRESSION: As above.
== END | disposition home or self-care (01) ==
LOC: RADXRMAIN 14:45
PROVIDERS: ATTEND Internal Medicine
DX: M47.812 Spondylosis without myelopathy or radiculopathy, cervical region (principal)
CPT/HCPCS: 72100

== ENCOUNTER → 2021-11-19 | Outpatient (CLI) | payer MEDICARE, BC ==
--- NOTE | 2021-11-19 13:58 | MR ---
EXAMINATION TYPE: MR lumbar spine wo con DATE OF EXAM: 11/19/2021 1:46 PM COMPARISON: 08/11/2017 HISTORY: Low back pain Multiplanar, MultiSpin echo imaging of the lumbar spine was performed. L1-L2: Moderate to severe decreased signal ossified compatible with degenerative disc disease. Tennis Ball Coverer Hand ior disc bulge moderate in degree with effacement of the ventral thecal sac. There is some moderate c entral stenosis unchanged from prior study. Bilateral foraminal encroachment identified. L2-L3: Moderate disc desiccation. Mild posterior disc bulge. No central stenosis or disc herniation. Facet joint arthropathy with mild bilateral foraminal encroachment. L3-L4: Moderate to severe disc desiccation mild posterior disc bulge. Mild effacement ventral thecal sac without nina stenosis at this time. No disc herniation. Facet joint arthropathy resulting in craig ateral neural foraminal encroachment. L4-L5: Severe disc desiccation with degenerative endplate marrow change. Posterior disc bulge with pa rtially encapsulating spur resulting in hard disc. Hypertrophy of the ligamentum flavum and facet bala nt arthropathy contribute to severe central stenosis. Bilateral foraminal encroachment. L5-S1: Severe disc desiccation with degenerative endplate marrow change. Posterior disc bulge with mi ld effacement ventral thecal sac. Partial encapsulating spur. No central stenosis or nina disc herni ation. Bilateral neural foraminal encroachment right greater than left. Lumbar segments are intact. No paraspinal masses are identified. Conus medullaris has a normal appe arance. Large ventral spurs noted. IMPRESSION: 1. Minimal degenerative disc disease as discussed above. 2. Central stenosis at L1-2 and L4-5 as noted. Overall stable appearance relative to prior examanaly oropeza
== END | disposition home or self-care (01) ==
LOC: RADMRIMAIN 13:11
PROVIDERS: ATTEND Internal Medicine
DX: M51.36 Other intervertebral disc degeneration, lumbar region (principal)
CPT/HCPCS: 72148

== ENCOUNTER → 2021-12-09 | Outpatient (CLI) | payer MEDICARE, BC ==
[2021-12-09 10:24] VITALS: BP 179/71; PULSE 61; RESP 18; TEMP 98.6
--- NOTE | 2021-12-09 14:48 | P.PAINPG ---
PQRS Measure Charge Sheet Comment: HISTORY OF PRESENT ILLNESS: 86 yr old male with at side as a referral from Dr. Harden presents today with severe and chronic LBP secondary to L1-L2 and L4-L5 severe spinal stenosis, disc bulges, DDD, facet arthropathy without myelopathy for evaluation. Patient states his pain level is currently at 9/10 in intensity, constant, sharp in character and localized in the lower aspect of the lumbar spine. Pain is provoked with bending. Pain is relieved with medications (Tylenol), heat, repositioning and rest. Patient states he underwent PT and chiropractic treatments greater than 30 years ago. PMH: Past Medical History: GERD, Hyperlipidemia, HTN, OA, BPH PSH: R 5th Pedal Digit Phalangectomy, BL Knee Arthroscopies/Arthroplasties, C3- C7 Laminectomy, Colonoscopy SH: Never smoker, Social ETOH use, No illicit drg use. and lives w spouse. FH: Fa- ETOH abuse/ . Mo- CVA/ in her 90s. Sister- Dementia. All: NKDA Meds: See list REVIEW OF ORGAN SYSTEMS: CONSTITUTIONAL: No fevers or chills. No recent weight loss. NEUROLOGICAL: + numbness and tingling along the distal extremities. No seizure disorders or headaches. MUSCULOSKELETAL: + pain PSYCHIATRIC: Denies current depression or suicidal thoughts. Physical Examinations : Constitutional : Cooperative , not in acute distress . Neurologic : Cranial nerve II to XII intact. No focal neurological deficits. Psychiatric : alert & oriented x 3. Matching mood & appropriate affect. Judgment & insight intact. Musculoskeletal : Cervical Spine Motor strength in the deltoid and biceps: Normal right side. Normal Left side Motor strength biceps and the wrist extensors: Normal right side . Normal left side Motor strength in the triceps muscle: Normal right side. Normal left side Deep tendon reflexes: Normal at the biceps. Normal at Brachioradialis. Normal at triceps Vertebral body tenderness to deep palpation over Cervical facet loading test: positive bilaterally Spurling test: positive bilaterally Neck distraction test: positive bilaterally Cecile sign: positive bilaterally Lumbar spine Motor strength lower extremities ,thigh and legs 5/5 Right side , 5/5 Left side Deep tendon reflexes : Normal Knee Jerk. Normal Ankle Jerk Vertebral body tenderness over L5 Lumbar facet Loading Test: positive Right / positive Left Range of motion of the lumbar spine Flexion 30 degrees, extension 10 degrees Straight Leg Raise test: Left/ Right positive at degree Susi test: positive right / positive left. Severe tenderness over the Sacroiliac joint on the Right / Left sides Gaenslen test: positive bilaterally Seated flexion test: positive bilaterally. Sacral spine : Severe tenderness over the Sacroiliac joint: right side / left side Range of motion: Flexion of the lumbar spine <60 degrees Range of motion: Extension of the lumbar spine <20 degrees Gaenslen's Test positive Kervin's Test positive Susi test: positive right side / left side Thigh Thrust Test Sacral Thrust Test Imaging: MRI without contrast of the lumbar spine from 11/19/21 reviewed Assessment/ Plan : Lumbar DDD, Lumbar stenosis Recommendation of PT 2 x / wk x 6 wks re: M51.36. Pt would like to start PT in [place] as he will be leaving the first week of Nov. He would benefit from RENETTA L5-S1 also. Risks, benefits of procedure discussed and patient verbalized understand ing. Denies aspirin or anti- coagulant use or medical history of diabetes. Protocol for discontinuation/ continuation of medications madeleine procedure discussed. All questions answered. I have spent greater than 30 minutes on patient care today. Dr Arita was available by phone for the evaluation of this patient. The time was used to review the medical records including relevant urine studies and Prescription history (MAPs), review of the available imaging, evaluation and examination of the patient, coordination of care with the medical staff and if applicable referring physicians, as well as creation of the medical record PQRS Narrative: Smoking Status Never smoker Home Medications: Ambulatory Orders Doxazosin [Cardura] 4 mg PO QAM 11/21/14 Atorvastatin [Lipitor] 20 mg PO HS 12/09/19 Pantoprazole Sodium [Protonix] 40 mg PO DAILY 12/09/19 Rivaroxaban [Xarelto] 20 mg PO DAILY #30 tab 12/10/19 Cetirizine HCl [Zyrtec] 10 mg PO HS 10/12/20 Flecainide Acetate 50 mg PO BID 10/12/20 Metoprolol Tartrate [Lopressor] 25 mg PO QAM 10/12/20 Controlled Substance Measures - Controlled Substance Measures Is patient prescribed a controlled substance at discharge?: No
== END | disposition home or self-care (01) ==
LOC: PNWHC3 09:02
PROVIDERS: ATTEND Specialist
DX: M51.36 Other intervertebral disc degeneration, lumbar region (principal)
CPT/HCPCS: 99211

== ENCOUNTER → 2022-08-01 | Outpatient (CLI) | payer MEDICARE, BC ==
--- NOTE | 2022-08-01 11:25 | XR ---
EXAMINATION TYPE: XR knee limited bilateral DATE OF EXAM: 08/01/2022 11:20 AM INDICATION: Patient age:Male; 87 years old; Reason for study: M25.569 bilateral knee pain; PHH. COMPARISON: Left knee radiographs 07/30/2012, right knee radiograph 11/05/2012 TECHNIQUE: Both knees are examined in standing frontal and lateral projections. FINDINGS: Postsurgical changes from bilateral total knee arthroplasty. Hardware appears intact with a ppropriate alignment. No periprosthetic lucency to suggest loosening. No acute fracture or dislocatio n. No significant joint effusion bilaterally. No soft tissue edema bilaterally. Vascular calcificatio ns are noted bilaterally. IMPRESSION: 1. No acute osseous pathology. 2. Postsurgical changes from bilateral total knee arthroplasty. Hardware appears intact with appropri ate alignment.
== END | disposition home or self-care (01) ==
LOC: RADXRMAIN 11:03
PROVIDERS: ATTEND Internal Medicine
DX: M25.561 Pain in right knee (principal); M25.562 Pain in left knee; Z96.653 Presence of artificial knee joint, bilateral

== ENCOUNTER → 2022-10-14 | Outpatient (CLI) | payer MEDICARE, BC ==
--- NOTE | 2022-10-14 18:05 | CT ---
EXAMINATION TYPE: CT abdomen wo/w con DATE OF EXAM: 10/14/2022 COMPARISON: None INDICATION: Abnormal weight loss. DLP: 879 mGycm, Automated exposure control for dose reduction was used. CONTRAST: 100ml mL of Isovue 300. Study performed with Oral Contrast TECHNIQUE: Axial images were obtained from above the diaphragm to the pubic rami in the axial plane a t 5 mm thick sections. Reconstructed images are reviewed on the computer in the coronal plane. FINDINGS: Limited CT sections are obtained the lung bases. Small hiatal hernia is present.. CT ABDOMEN: Liver: Normal Spleen: Normal Pancreas: Normal Adrenal glands: The adrenal glands are normal. Gallbladder: Normal Kidneys: No masses are evident. No hydronephrosis is present. No cysts are present. Delayed images were obtained through the kidneys, which remain unremarkable. No renal stones are evident on precont rast images. Aorta: Vascular calcification is within the aorta. Inferior vena cava: Normal. Fecal debris is within the ascending and transverse colon. Contrast extends to the proximal transvers e colon. Few diverticuli or within the visualized superior portions of the sigmoid colon within the p rishabh. There are loops of bowel which are incompletely distended or lack oral contrast limiting their evaluation. Degenerative disc changes are within the lumbar spine. IMPRESSIONS: 1. No suspicious abnormality to account for patient's symptoms. 2. Small hiatal hernia.
== END | disposition home or self-care (01) ==
LOC: RADCTMAIN 09:55
PROVIDERS: ATTEND Internal Medicine
DX: K44.9 Diaphragmatic hernia without obstruction or gangrene (principal); R10.84 Generalized abdominal pain; R63.4 Abnormal weight loss
CPT/HCPCS: 74170; Q9967

== ENCOUNTER 2022-10-20 14:19 | Emergency (ER) | payer MEDICARE, BC ==
--- NOTE | 2022-10-20 14:52 | ED ---
Abdominal Pain HPI - General Source: patient, RN notes reviewed Mode of arrival: ambulatory Limitations: no limitations - History of Present Illness MD Complaint: abdominal pain <Ellen Uribe - Last Filed: 10/20/22 14:49> <Quinton Christian - Last Filed: 10/20/22 23:50> - General Chief Complaint: Abdominal Pain Stated Complaint: abd pain Time Seen by Provider: 10/20/22 14:48 - History of Present Illness Initial Comments: This is an 87 year old male who presents to the emergency department for abdominal pain. States that this has been ongoing for several months. He has b een following up with his PCP and had an outpatient CT scan done 6 days ago, but does not know the results. States that he could not take the pain anymore, prompting him to come to the emergency department. (Ellen Uribe) 87-year-old male presenting with chief complaint of abdominal pain. Patient states the pain is been ongoing for months. He recently received an outpatient CT ordered by his PCP which showed no acute process. States that today he had an episode of nausea and vomiting. Patient does have remote history of prostate procedure, he is unsure of the specific procedure. No fevers, chills, diarrhea, hematochezia, melena, dysuria, chest pain, difficulty breathing (Quinton Christian) - Related Data Home Medications Medication Instructions Recorded Confirmed Doxazosin [Cardura] 4 mg PO QAM 11/21/14 12/09/21 Atorvastatin [Lipitor] 20 mg PO HS 12/09/19 12/09/21 Pantoprazole Sodium [Protonix] 40 mg PO DAILY 12/09/19 12/09/21 Cetirizine HCl [Zyrtec] 10 mg PO HS 10/12/20 12/09/21 Flecainide Acetate 50 mg PO BID 10/12/20 12/09/21 Metoprolol Tartrate [Lopressor] 25 mg PO QAM 10/12/20 12/09/21 Previous Rx's Medication Instructions Recorded Rivaroxaban [Xarelto] 20 mg PO DAILY #30 tab 12/10/19 Sulfamethox-Tmp 800-160Mg [Bactrim 1 tab PO Q12HR 7 Days #14 tab 10/20/22 DS 800-160 mg] Allergies Allergy/AdvReac Type Severity Reaction Status Date / Time No Known Allergies Allergy Verified 10/20/22 14:41 Review of Systems ROS Other: All systems not noted in ROS Statement are negative. <Ellen Uribe - Last Filed: 10/20/22 14:49> ROS Other: All systems not noted in ROS Statement are negative. <Quinton Christian - Last Filed: 10/20/22 23:50> ROS Statement: Those systems with pertinent positive or pertinent negative responses have been documented in the HPI. Past Medical History Past Medical History: Atrial Fibrillation, GERD/Reflux, Hyperlipidemia, Hypertension, Osteoarthritis (OA), Prostate Disorder Additional Past Medical History / Comment(s): Arthritis in multiple joints, chronic low back and cervical pain, BPH History of Any Multi-Drug Resistant Organisms: None Reported Past Surgical History: Joint Replacement, Orthopedic Surgery, Prostate Surgery Additional Past Surgical History / Comment(s): Bilateral knee arthroscopies/ar throplasties, laminectomy C3 through C7, colonoscopy. Past Anesthesia/Blood Transfusion Reactions: No Reported Reaction Past Psychological History: No Psychological Hx Reported Smoking Status: Never smoker Past Alcohol Use History: None Reported Past Drug Use History: None Reported - Past Family History Father History Unknown: Yes Mother Family Medical History: No Reported History Additional Family Medical History / Comment(s): . Sister(s) Additional Family Medical History / Comment(s): Patient has 1 sister. She is living with history of dementia. Patient does not have any brothers. Patient has one son with no major medical problems and one daughter with celiac and osteoporosis <Ellen Uribe - Last Filed: 10/20/22 14:49> General Exam Limitations: no limitations <Ellen Uribe - Last Filed: 10/20/22 14:49> Limitations: no limitations General appearance: alert, in no apparent distress Head exam: Present: atraumatic, normocephalic, normal inspection Eye exam: Present: normal appearance, EOMI Neck exam: Present: normal inspection, full ROM Respiratory exam: Present: normal lung sounds bilaterally. Absent: respiratory distress, wheezes, rales, rhonchi, stridor Cardiovascular Exam: Present: regular rate, normal rhythm, normal heart sounds. Absent: systolic murmur, diastolic murmur, rubs, gallop, clicks GI/Abdominal exam: Present: soft. Absent: distended, tenderness, guarding, rebound, rigid Neurological exam: Present: alert, oriented X3, CN II-XII intact Psychiatric exam: Present: normal affect, normal mood Skin exam: Present: warm, dry, intact, normal color. Absent: rash <Quinton Christian - Last Filed: 10/20/22 23:50> - General Exam Comments Initial Comments: Visual Physical Exam Vital signs reviewed General: Well-appearing, nontoxic, no acute distress. Head: Normocephalic, atraumatic Eyes: PERRLA, EOMI ENT: Airway patent Chest: Nonlabored breathing Skin: No visual rash, normal skin tone Neuro: Alert and oriented 3 Musculoskeletal: No gross abnormalities I performed the QuickNote portion of this chart. Signed Ellen Uribe PA-C. (Ellen Uribe) Course Vital Signs 10/20/22 10/20/22 10/20/22 14:37 18:33 19:39 Temperature 98.5 F 99.7 F H 99.1 F Pulse Rate 79 78 77 Respiratory 20 18 18 Rate Blood Pressure 116/60 123/55 133/69 O2 Sat by Pulse 99 97 97 Oximetry 10/20/22 21:47 Temperature Pulse Rate 75 Respiratory 18 Rate Blood Pressure 133/94 O2 Sat by Pulse 98 Oximetry Medical Decision Making - Lab Data Result diagrams: 10/20/22 16:12 10/20/22 16:12 <Quinton Christian - Last Filed: 10/20/22 23:50> - Medical Decision Making Was pt. sent in by a medical professional or institution ([facility], LUMBER INSPECTOR, urgent care, hospital, or [facility]...) When possible be specific @ -No Did you speak to anyone other than the patient for history (EMS, parent, family, police, friend...)? What history was obtained from this source @ -No Did you review nursing and triage notes (agree or disagree)? Why? @ -I reviewed and agree with nursing and triage notes Were old charts reviewed (outside hosp., previous admission, EMS record, old EKG, old radiological studies, urgent care reports/EKG's, [facility] records)? Report findings @ -Reviewed outpatient CT, no acute process Differential Diagnosis (chest pain, altered mental status, abdominal pain women, abdominal pain men, vaginal bleeding, weakness, fever, dyspnea, syncope, headache, dizziness, GI bleed, back pain, seizure, CVA, palpatations, mental health, musculoskeletal)? @ -[facility] Differential Abdominal Pain Men: Appendicitis, cholecystitis, diverticulosis, ischemic bowel, pancreatitis, he patitis, UTI, gastroenteritis, AAA, incarcerated hernia, bowel obstruction, constipation, inflammatory bowel, hepatitis, peptic ulcer disease, splenic infarction, perforated viscus, testicular torsion... This is not meant to be an all-inclusive list EKG interpreted by me (3pts min.). @ -Sinus rhythm with sinus arrhythmia ventricular rate 75. CT interval 174. QRS 94. QT 383. QTC 413. X-rays interpreted by me (1pt min.). @ -[facility] x-ray shows no acute process CT interpreted by me (1pt min.). @ -None done U/S interpreted by me (1pt. min.). @ -None done What testing was considered but not performed or refused? (CT, X-rays, U/S, labs)? Why? @ -None What meds were considered but not given or refused? Why? @ -None Did you discuss the management of the patient with other professionals (professionals i.e. , PA, LUMBER INSPECTOR, lab, RT, psych nurse, oncology social worker, solid tire tuber machine operator, teacher, community arts officer, mattress spring encaser)? Give summary @ -No Was smoking cessation discussed for >3mins.? @ -No Was critical care preformed (if so, how long)? @ -No Were there social determinants of health that impacted care today? How? (Homelessness, low income, unemployed, alcoholism, drug addiction, transportation, low edu. Level, literacy, decrease access to med. care, [facility], rehab)? @ -No Was there de-escalation of care discussed even if they declined (Discuss DNR or withdrawal of care, Hospice)? DNR status @ -No What co-morbidities impacted this encounter? (DM, HTN, Smoking, COPD, CAD, C ancer, CVA, ARF, Chemo, Hep., AIDS, mental health diagnosis, sleep apnea, morbid obesity)? @ -None Was patient admitted / discharged? Hospital course, mention meds given and route, prescriptions, significant lab abnormalities, going to OR and other pertinent info. @ -87-year-old male presenting with chief complaint of abdominal pain ongoing for months. Recent negative outpatient CT. Physical examination is unremarkable. Lab work shows hemoglobin 11.5. AST 112 ALT 69 and alkaline phosphatase 474, patient is having no upper abdominal pain, pain is focused mainly in the lower abdomen when the patient is having pain. Post void residual was 144 mL, fully catheter is placed. Urine shows 69 RBCs and 8 WBCs, he started on Bactrim and urine is sent for culture. He is instructed to follow-up with urology. Follow-up with PCP. Report back to ER with any new or worsening symptoms. Discussed return parameters and answered all questions. Patient conveyed verbal understanding and agreed to the plan. I discussed this case in detail with my attending Dr. Bryson Undiagnosed new problem with uncertain prognosis? @ -No Drug Therapy requiring intensive monitoring for toxicity (Heparin, Nitro, Insulin, Cardizem)? @ -No Were any procedures done? @ -No Diagnosis/symptom? @ -Urinary retention Acute, or Chronic, or Acute on Chronic? @ -acute Uncomplicated (without systemic symptoms) or Complicated (systemic symptoms)? @ -Uncomplicated Side effects of treatment? @ -No Exacerbation, Progression, or Severe Exacerbation? @ -No Poses a threat to life or bodily function? How? (Chest pain, [place], [place], pneumonia, PE, COPD, DKA, ARF, appy, cholecystitis, CVA, Diverticulitis, Homicidal, Suicidal, threat to staff... and all critical care pts) @ -No (Quinton Christian) - Lab Data Lab Results 10/20/22 10/20/22 10/20/22 Range/Units 16:12 16:12 16:12 WBC 9.0 (3.8-10.6) k/uL RBC 3.96 L (4.30-5.90) m/uL Hgb 11.5 L (13.0-17.5) gm/dL Hct 34.6 L (39.0-53.0) % MCV 87.3 (80.0-100.0) fL MCH 28.9 (25.0-35.0) pg MCHC 33.1 (31.0-37.0) g/dL RDW 14.0 (11.5-15.5) % Plt Count 512 H (150-450) k/uL MPV 7.5 Neutrophils % 68 % Lymphocytes % 24 % Monocytes % 5 % Eosinophils % 1 % Basophils % 0 % Neutrophils # 6.1 (1.3-7.7) k/uL Lymphocytes # 2.2 (1.0-4.8) k/uL Monocytes # 0.5 (0-1.0) k/uL Eosinophils # 0.1 (0-0.7) k/uL Basophils # 0.0 (0-0.2) k/uL Sodium 133 L (137-145) mmol/L Potassium 4.5 (3.5-5.1) mmol/L Chloride 98 (98-107) mmol/L Carbon Dioxide 24 (22-30) mmol/L Anion Gap 11 mmol/L BUN 11 (9-20) mg/dL Creatinine 0.72 (0.66-1.25) mg/dL Est GFR (CKD-EPI)AfAm >90 (>60 ml/min/1.73 sqM) Est GFR (CKD-EPI)NonAf 85 (>60 ml/min/1.73 sqM) Glucose 118 H (74-99) mg/dL Plasma Lactic Acid Oscar 1.1 (0.7-2.0) mmol/L Calcium 8.6 (8.4-10.2) mg/dL Total Bilirubin 0.6 (0.2-1.3) mg/dL AST 112 H (17-59) U/L ALT 69 H (4-49) U/L Alkaline Phosphatase 474 H (38-126) U/L Total Protein 7.1 (6.3-8.2) g/dL Albumin 3.7 (3.5-5.0) g/dL Amylase 63 (30-110) U/L Lipase 67 (23-300) U/L Urine Color Urine Appearance (Clear) Urine pH (5.0-8.0) Ur Specific [place] (1.001-1.035) Urine Protein (Negative) Urine Glucose (UA) (Negative) Urine Ketones (Negative) Urine Blood (Negative) Urine Nitrite (Negative) Urine Bilirubin (Negative) Urine Urobilinogen (<2.0) mg/dL Ur Leukocyte Esterase (Negative) Urine RBC (0-5) /hpf Urine WBC (0-5) /hpf Urine Bacteria (None) /hpf Urine Mucus (None) /hpf 08/24/23 Range/Units 20:15 WBC (3.8-10.6) k/uL RBC (4.30-5.90) m/uL Hgb (13.0-17.5) gm/dL Hct (39.0-53.0) % MCV (80.0-100.0) fL MCH (25.0-35.0) pg MCHC (31.0-37.0) g/dL RDW (11.5-15.5) % Plt Count (150-450) k/uL MPV Neutrophils % % Lymphocytes % % Monocytes % % Eosinophils % % Basophils % % Neutrophils # (1.3-7.7) k/uL Lymphocytes # (1.0-4.8) k/uL Monocytes # (0-1.0) k/uL Eosinophils # (0-0.7) k/uL Basophils # (0-0.2) k/uL Sodium (137-145) mmol/L Potassium (3.5-5.1) mmol/L Chloride (98-107) mmol/L Carbon Dioxide (22-30) mmol/L Anion Gap mmol/L BUN (9-20) mg/dL Creatinine (0.66-1.25) mg/dL Est GFR (CKD-EPI)AfAm (>60 ml/min/1.73 sqM) Est GFR (CKD-EPI)NonAf (>60 ml/min/1.73 sqM) Glucose (74-99) mg/dL Plasma Lactic Acid Oscar (0.7-2.0) mmol/L Calcium (8.4-10.2) mg/dL Total Bilirubin (0.2-1.3) mg/dL AST (17-59) U/L ALT (4-49) U/L Alkaline Phosphatase (38-126) U/L Total Protein (6.3-8.2) g/dL Albumin (3.5-5.0) g/dL Amylase (30-110) U/L Lipase (23-300) U/L Urine Color Yellow Urine Appearance Clear (Clear) Urine pH 6.5 (5.0-8.0) Ur Specific [place] 1.022 (1.001-1.035) Urine Protein 1+ H (Negative) Urine Glucose (UA) Negative (Negative) Urine Ketones Negative (Negative) Urine Blood Large H (Negative) Urine Nitrite Negative (Negative) Urine Bilirubin Negative (Negative) Urine Urobilinogen <2.0 (<2.0) mg/dL Ur Leukocyte Esterase Negative (Negative) Urine RBC 69 H (0-5) /hpf Urine WBC 8 H (0-5) /hpf Urine Bacteria Rare H (None) /hpf Urine Mucus Moderate H (None) /hpf Disposition <Ellen Uribe - Last Filed: 10/20/22 14:49> Is patient prescribed a controlled substance at d/c from ED?: No Time of Disposition: 20:55 <Quinton Christian - Last Filed: 10/20/22 23:50> Clinical Impression: Urinary retention Disposition: HOME SELF-CARE Condition: Good Instructions (If sedation given, give patient instructions): Urinary Retention in Men (ED), Quintero Catheter Placement and Care (ED), Abdominal Pain (ED) Additional Instructions: Follow-up with PCP and urology. Report back to ER with any new or worsening symptoms. Prescriptions: Sulfamethox-Tmp 800-160Mg [Bactrim DS 800-160 mg] 1 tab PO Q12HR 7 Days #14 tab Referrals: Melecio Harden MD [Primary Care Provider] - 1-2 days Brandon Gomez MD [STAFF PHYSICIAN] - 1-2 days Norberto Short MD [STAFF PHYSICIAN] - 1-2 days
[2022-10-20 16:21] LABS: Basophils % (A) 0 %; Eosinophils # (A) 0.1 k/uL (0-0.7); Eosinophils % (A) 1 %; HCT 34.6 % (39.0-53.0); HGB 11.5 gm/dL (13.0-17.5); Lymphocytes # (A) 2.2 k/uL (1.0-4.8); Lymphocytes % (A) 24 %; MCH 28.9 pg (25.0-35.0); MCHC 33.1 g/dL (31.0-37.0); MCV 87.3 fL (80.0-100.0); Mean Platelet Volume 7.5; Monocytes # (A) 0.5 k/uL (0-1.0); Monocytes % (A) 5 %; Neutrophils # (A) 6.1 k/uL (1.3-7.7); Neutrophils % (A) 68 %; Platelet Count 512 k/uL (150-450); RBC 3.96 m/uL (4.30-5.90)
[2022-10-20 16:43] LABS: ALT 69 U/L (4-49); AST 112 U/L (17-59); African American GFR (CKD) >90 (>60 ml/min/1.73 sqM); Albumin 3.7 g/dL (3.5-5.0); Alkaline Phosphatase 474 U/L (38-126); Amylase 63 U/L (30-110); Anion Gap 11 mmol/L; Blood Urea Nitrogen 11 mg/dL (9-20); Calcium 8.6 mg/dL (8.4-10.2); Carbon Dioxide 24 mmol/L (22-30); Chloride 98 mmol/L (98-107); Glucose 118 mg/dL (74-99); Lipase 67 U/L (23-300); Non-African American GFR(CKD) 85 (>60 ml/min/1.73 sqM); Potassium 4.5 mmol/L (3.5-5.1); Sodium 133 mmol/L (137-145); Total Bilirubin 0.6 mg/dL (0.2-1.3); Total Protein 7.1 g/dL (6.3-8.2)
[2022-10-20 18:36] VITALS: RESP 18
[2022-10-20 19:42] VITALS: TEMP 99.1
--- NOTE | 2022-10-20 20:30 | XR ---
EXAMINATION TYPE: XR KUB DATE OF EXAM: 10/20/2022 7:12 PM CLINICAL HISTORY: Nausea and abdominal pain TECHNIQUE: 2 upright views were obtained. COMPARISON: None. FINDINGS: The visualized lung bases and pleural spaces are negative for acute process. Scattered gas is seen in non-distended small bowel loops. Gas and fecal material is seen in non-diste nded colon. There is no visceromegaly, pneumoperitoneum, or abnormal calcification appreciated. There are no focal skeletal findings, but the skeletal system does appear diffusely hypersclerotic, a nonspecific finding. No IMPRESSION: No acute radiographic process.
[2022-10-20 20:34] LABS: Appearance,Urine Clear (Clear); Bacteria,Urine Rare /hpf; Bilirubin,Urine Negative (Negative); Blood,Urine Large (Negative); Color,Urine Yellow; Glucose,Urine (UA) Negative (Negative); Ketones,Urine Negative (Negative); Leukocyte Esterase,Urine Negative (Negative); Mucus,Urine Moderate /hpf; Nitrite,Urine Negative (Negative); PH, Urine 6.5 (5.0-8.0); Protein,Urine 1+ (Negative); RBC,Urine 69 /hpf (0-5); Specific Gravity,Urine 1.022 (1.001-1.035); Urobilinogen,Urine <2.0 mg/dL (<2.0); WBC,Urine 8 /hpf (0-5)
[2022-10-20 21:48] VITALS: BP 133/94; PULSE 75
== END 2022-10-20 21:49 | disposition home or self-care (01) ==
LOC: EC 14:19
DX: R33.9 Retention of urine, unspecified (principal); I48.91 Unspecified atrial fibrillation; E78.5 Hyperlipidemia, unspecified; I10 Essential (primary) hypertension; K21.9 Gastro-esophageal reflux disease without esophagitis; M19.90 Unspecified osteoarthritis, unspecified site; Z79.899 Other long term (current) drug therapy
CPT/HCPCS: 36415; 51702; 51798; 74018; 80053; 81001; 82150; 83605; 83690; 85025; 87086; 93005; 99285

== ENCOUNTER 2022-11-13 09:25 | Emergency (ER) | payer MEDICARE, BC ==
[2022-11-13 09:39] VITALS: TEMP 97.8
[2022-11-13 10:00] LABS: Anisocytosis Slight; Basophils % (A) 0 %; Eosinophils # (A) 0.2 k/uL (0-0.7); Eosinophils % (A) 3 %; HCT 26.6 % (39.0-53.0); Hypochromasia Slight; Lymphocytes # (A) 1.8 k/uL (1.0-4.8); Lymphocytes % (A) 28 %; MCH 28.2 pg (25.0-35.0); MCHC 31.9 g/dL (31.0-37.0); MCV 88.4 fL (80.0-100.0); Mean Platelet Volume 7.6; Monocytes # (A) 0.2 k/uL (0-1.0); Monocytes % (A) 4 %; Neutrophils # (A) 4.1 k/uL (1.3-7.7); Neutrophils % (A) 63 %; Platelet Count 416 k/uL (150-450); RBC 3.01 m/uL (4.30-5.90); RDW 16.4 % (11.5-15.5); WBC 6.5 k/uL (3.8-10.6)
[2022-11-13 10:08] LABS: HGB 8.5 gm/dL (13.0-17.5)
[2022-11-13 10:13] LABS: Partial Thromboplastin Time 24.3 sec (22.0-30.0); Prothrombin Time 10.7 sec (9.0-12.0)
[2022-11-13 10:15] LABS: ALT 86 U/L (4-49); AST 57 U/L (17-59); African American GFR (CKD) >90 (>60 ml/min/1.73 sqM); Albumin 2.9 g/dL (3.5-5.0); Alkaline Phosphatase 407 U/L (38-126); Anion Gap 7 mmol/L; Blood Urea Nitrogen 12 mg/dL (9-20); Calcium 7.9 mg/dL (8.4-10.2); Carbon Dioxide 23 mmol/L (22-30); Chloride 105 mmol/L (98-107); Glucose 149 mg/dL (74-99); Non-African American GFR(CKD) 83 (>60 ml/min/1.73 sqM); Potassium 4.7 mmol/L (3.5-5.1); Sodium 135 mmol/L (137-145); Total Bilirubin 0.4 mg/dL (0.2-1.3); Total Protein 5.6 g/dL (6.3-8.2)
--- NOTE | 2022-11-13 10:36 | ED ---
General Adult HPI - General Chief complaint: Syncope Stated complaint: Syncope Time Seen by Provider: 11/13/22 09:27 Source: EMS Mode of arrival: EMS Limitations: no limitations - History of Present Illness Initial comments: Dictation was produced using [employer] dictation software. please excuse any grammatical, word or spelling errors. Chief Complaint: 87-year-old male presents after 6 episodes History of Present Illness: Is 87-year-old male presents after episode of syncope. Patient has no history of syncope. Patient has several other comorbidities. History of A. fib, dyslipidemia hypertension.. Is currently being worked up for prostate cancer. Recently had bone marrow biopsy. Apparently patient woke up in his usual state of health. He went to breakfast had some donuts and coffee. Patient then syncopized. He woke up in his house and realized he had soiled himself. He went to the bathroom to finish using the toilet. His metabolic issues recently. Patient has had soft stool. Since being in emergency department patient denies any complaints. He currently feels at baseline. Patient has history of A. fib. The ROS documented in this emergency department record has been reviewed and confirmed by me. Those systems with pertinent positive or negative responses have been documented in the HPI. All other systems are other negative and/or noncontributory. - Related Data Home Medications Medication Instructions Recorded Confirmed Doxazosin [Cardura] 4 mg PO QAM 11/21/14 12/09/21 Atorvastatin [Lipitor] 20 mg PO HS 12/09/19 12/09/21 Pantoprazole Sodium [Protonix] 40 mg PO DAILY 12/09/19 12/09/21 Cetirizine HCl [Zyrtec] 10 mg PO HS 10/12/20 12/09/21 Flecainide Acetate 50 mg PO BID 10/12/20 12/09/21 Metoprolol Tartrate [Lopressor] 25 mg PO QAM 10/12/20 12/09/21 Previous Rx's Medication Instructions Recorded Rivaroxaban [Xarelto] 20 mg PO DAILY #30 tab 12/10/19 Sulfamethox-Tmp 800-160Mg [Bactrim 1 tab PO Q12HR 7 Days #14 tab 10/20/22 DS 800-160 mg] Allergies Allergy/AdvReac Type Severity Reaction Status Date / Time No Known Allergies Allergy Verified 10/20/22 14:41 Review of Systems ROS Statement: Those systems with pertinent positive or pertinent negative responses have been documented in the HPI. ROS Other: All systems not noted in ROS Statement are negative. Past Medical History Past Medical History: Atrial Fibrillation, GERD/Reflux, Hyperlipidemia, Hypertension, Osteoarthritis (OA), Prostate Disorder Additional Past Medical History / Comment(s): Arthritis in multiple joints, chronic low back and cervical pain, BPH, History of Any Multi-Drug Resistant Organisms: None Reported Past Surgical History: Joint Replacement, Orthopedic Surgery, Prostate Surgery Additional Past Surgical History / Comment(s): Bilateral knee arthroscopies/arth roplasties, laminectomy C3 through C7, colonoscopy. 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) Past Anesthesia/Blood Transfusion Reactions: No Reported Reaction Past Psychological History: No Psychological Hx Reported Smoking Status: Never smoker Past Alcohol Use History: None Reported Past Drug Use History: None Reported - Past Family History Father History Unknown: Yes Mother Family Medical History: No Reported History Additional Family Medical History / Comment(s): . Sister(s) Additional Family Medical History / Comment(s): Patient has 1 sister. She is living with history of dementia. Patient does not have any brothers. Patient has one son with no major medical problems and one daughter with celiac and osteoporosis General Exam - General Exam Comments Initial Comments: PHYSICAL EXAM: General Impression: Alert and oriented x3, not in acute distress HEENT: Normocephalic atraumatic, extra-ocular movements intact, pupils equal and reactive to light bilaterally, mucous membranes moist. Cardiovascular: Heart regular rate and rhythm Chest: Able to complete full sentences, no retractions, no tachypnea Abdomen: abdomen soft, non-tender, non-distended, no organomegaly Musculoskeletal: Pulses present and equal in all extremities, no peripheral edema Motor: no focal deficits noted Neurological: CN II-XII grossly intact, no focal motor or sensory deficits noted Skin: Intact with no visualized rashes Psych: Normal affect and mood Limitations: no limitations Course Vital Signs 11/13/22 11/13/22 11/13/22 09:26 10:00 10:30 Temperature 97.8 F Pulse Rate 93 78 78 Respiratory 16 20 18 Rate Blood Pressure 115/62 115/62 98/54 Blood Pressure [Left Arm Sitting] Blood Pressure [Left Arm Standing] Blood Pressure [Left Arm Supine] O2 Sat by Pulse 100 100 100 Oximetry 11/13/22 11/13/22 11:06 13:00 Temperature Pulse Rate 80 Respiratory 20 Rate Blood Pressure 113/65 Blood Pressure 108/60 [Left Arm Sitting] Blood Pressure 91/60 [Left Arm Standing] Blood Pressure 110/57 [Left Arm Supine] O2 Sat by Pulse 99 Oximetry EKG Findings - EKG Comments: EKG Findings:: My EKG interpretation: Ventricular rate 86, A. fib, QRS 91, QTC 46. No CO prolongation, no QTC prolongation, no ST or T-wave changes noted. Overall, this EKG is unremarkable Medical Decision Making - Medical Decision Making Was pt. sent in by a medical professional or institution (, PA, HAT BRAIDER, urgent care, hospital, or [facility]...) When possible be specific @ -No Did you speak to anyone other than the patient for history (EMS, parent, family, police, friend...)? What history was obtained from this source @ -No Did you review nursing and triage notes (agree or disagree)? Why? @ -I reviewed and agree with nursing and triage notes Were old charts reviewed (outside hosp., previous admission, EMS record, old EKG, old radiological studies, urgent care reports/EKG's, [facility] records)? Report findings @ -No old charts were reviewed Differential Diagnosis (chest pain, altered mental status, abdominal pain women, abdominal pain men, vaginal bleeding, musculoskeletal, weakness, fever, dyspnea, syncope, headache, dizziness, GI bleed, back pain, seizure, CVA, palpatations, mental health)? @ -Differential Syncope: Valvular disease, hypertrophic cardiomyopathy, pulmonary embolism, tamponade, tachycardia, bradycardia, OK, hypovolemia, hemorrhage, dissection, anemia, intracranial hemorrhage, seizure, hypoglycemia, carbon monoxide poisoning, this is not meant to be an all-inclusive list. EKG interpreted by me (3pts min.). @ -See above X-rays interpreted by me (1pt min.). @ -None done CT interpreted by me (1pt min.). @ -None done U/S interpreted by me (1pt. min.). @ -None done What testing was considered but not performed or refused? (CT, X-rays, U/S, labs)? Why? @ -None What meds were considered but not given or refused? Why? @ -None Did you discuss the management of the patient with other professionals (professionals i.e. , PA, HAT BRAIDER, lab, RT, psych nurse, geriatric social worker, sap business objects consultant, teacher, property utilization officer, behavioral health case manager)? Give summary @ -No Was smoking cessation discussed for >3mins.? @ -No Was critical care preformed (if so, how long)? @ -No Were there social determinants of health that impacted care today? How? (Homelessness, low income, unemployed, alcoholism, drug addiction, transportation, low edu. Level, literacy, decrease access to med. care, senior living, rehab)? @ -No Was there de-escalation of care discussed even if they declined (Discuss DNR or withdrawal of care, Hospice)? DNR status @ -No What co-morbidities impacted this encounter? (DM, HTN, Smoking, COPD, CAD, Cancer, CVA, ARF, Chemo, Hep., AIDS, mental health diagnosis, sleep apnea, morbid obesity)? @ -None Was patient admitted / discharged? Hospital course, mention meds given and route, prescriptions, significant lab abnormalities, going to OR and other pertinent info. @ -Year-old male presents to the emergency department. We'll episode. Vital signs upon arrival are within acceptable limits. Orthostatic vital signs are within acceptable limits. Patient is asymptomatic with standing. Laboratory evaluation shows anemia. Exacerbation allegedly has recent history of anemia. Denies any black or bloody stools. Still, blood negative. Coag panel metabolic panel is within acceptable limits. Patient monitored in the emergency department for 3 hours and 40 minutes. Reevaluated at bedside at 1:06 PM found to be within stable medical condition. Disposition options were discussed his group for discharge. Advised close follow-up with primary care doctor. Return precautions discussed. Patient agreeable plan. Clinical presentation consistent with vasovagal syncope. Undiagnosed new problem with uncertain prognosis? @ -No Drug Therapy requiring intensive monitoring for toxicity (Heparin, Nitro, Insulin, Cardizem)? @ -No Were any procedures done? @ -No Diagnosis/symptom? Acute, or Chronic, or Acute on Chronic? Uncomplicated (without systemic symptoms) or Complicated (systemic symptoms)? @ -Vasovagal syncope Side effects of treatment? @ -No Exacerbation, Progression, or Severe Exacerbation? @ -No Poses a threat to life or bodily function? How? (Chest pain, USA, OK, pneumonia, PE, COPD, DKA, ARF, appy, cholecystitis, CVA, Diverticulitis, Homicidal, Suicidal, threat to staff... and all critical care pts) @ -No - Lab Data Result diagrams: 11/13/22 09:42 11/13/22 09:42 Lab Results 11/13/22 11/13/22 11/13/22 Range/Units 09:42 09:42 09:42 WBC 6.5 (3.8-10.6) k/uL RBC 3.01 L (4.30-5.90) m/uL Hgb 8.5 L D (13.0-17.5) gm/dL Hct 26.6 L (39.0-53.0) % MCV 88.4 (80.0-100.0) fL MCH 28.2 (25.0-35.0) pg MCHC 31.9 (31.0-37.0) g/dL RDW 16.4 H (11.5-15.5) % Plt Count 416 (150-450) k/uL MPV 7.6 Neutrophils % 63 % Lymphocytes % 28 % Monocytes % 4 % Eosinophils % 3 % Basophils % 0 % Neutrophils # 4.1 (1.3-7.7) k/uL Lymphocytes # 1.8 (1.0-4.8) k/uL Monocytes # 0.2 (0-1.0) k/uL Eosinophils # 0.2 (0-0.7) k/uL Basophils # 0.0 (0-0.2) k/uL Hypochromasia Slight Anisocytosis Slight PT 10.7 (9.0-12.0) sec INR 1.0 (<1.2) APTT 24.3 (22.0-30.0) sec Sodium 135 L (137-145) mmol/L Potassium 4.7 (3.5-5.1) mmol/L Chloride 105 (98-107) mmol/L Carbon Dioxide 23 (22-30) mmol/L Anion Gap 7 mmol/L BUN 12 (9-20) mg/dL Creatinine 0.77 (0.66-1.25) mg/dL Est GFR (CKD-EPI)AfAm >90 (>60 ml/min/1.73 sqM) Est GFR (CKD-EPI)NonAf 83 (>60 ml/min/1.73 sqM) Glucose 149 H (74-99) mg/dL Plasma Lactic Acid Oscar (0.7-2.0) mmol/L Calcium 7.9 L (8.4-10.2) mg/dL Magnesium 2.0 (1.6-2.3) mg/dL Total Bilirubin 0.4 (0.2-1.3) mg/dL AST 57 (17-59) U/L ALT 86 H (4-49) U/L Alkaline Phosphatase 407 H (38-126) U/L Troponin I (0.000-0.034) ng/mL Total Protein 5.6 L (6.3-8.2) g/dL Albumin 2.9 L (3.5-5.0) g/dL Stool Occult Blood (Negative) 11/13/22 11/13/22 11/13/22 Range/Units 09:42 09:42 11:54 WBC (3.8-10.6) k/uL RBC (4.30-5.90) m/uL Hgb (13.0-17.5) gm/dL Hct (39.0-53.0) % MCV (80.0-100.0) fL MCH (25.0-35.0) pg MCHC (31.0-37.0) g/dL RDW (11.5-15.5) % Plt Count (150-450) k/uL MPV Neutrophils % % Lymphocytes % % Monocytes % % Eosinophils % % Basophils % % Neutrophils # (1.3-7.7) k/uL Lymphocytes # (1.0-4.8) k/uL Monocytes # (0-1.0) k/uL Eosinophils # (0-0.7) k/uL Basophils # (0-0.2) k/uL Hypochromasia Anisocytosis PT (9.0-12.0) sec INR (<1.2) APTT (22.0-30.0) sec Sodium (137-145) mmol/L Potassium (3.5-5.1) mmol/L Chloride (98-107) mmol/L Carbon Dioxide (22-30) mmol/L Anion Gap mmol/L BUN (9-20) mg/dL Creatinine (0.66-1.25) mg/dL Est GFR (CKD-EPI)AfAm (>60 ml/min/1.73 sqM) Est GFR (CKD-EPI)NonAf (>60 ml/min/1.73 sqM) Glucose (74-99) mg/dL Plasma Lactic Acid Oscar 1.7 (0.7-2.0) mmol/L Calcium (8.4-10.2) mg/dL Magnesium (1.6-2.3) mg/dL Total Bilirubin (0.2-1.3) mg/dL AST (17-59) U/L ALT (4-49) U/L Alkaline Phosphatase (38-126) U/L Troponin I <0.012 (0.000-0.034) ng/mL Total Protein (6.3-8.2) g/dL Albumin (3.5-5.0) g/dL Stool Occult Blood Negative (Negative) Disposition Clinical Impression: Syncope Disposition: HOME SELF-CARE Condition: Good Is patient prescribed a controlled substance at d/c from ED?: No Referrals: Melecio Harden MD [Primary Care Provider] - 1-2 days Time of Disposition: 13:07
[2022-11-13 13:40] VITALS: BP 127/62; PULSE 88; RESP 18
== END 2022-11-13 13:39 | disposition home or self-care (01) ==
LOC: EC 09:25
DX: R55 Syncope and collapse (principal); E78.5 Hyperlipidemia, unspecified; I10 Essential (primary) hypertension; I48.91 Unspecified atrial fibrillation; K21.9 Gastro-esophageal reflux disease without esophagitis; Z79.899 Other long term (current) drug therapy
CPT/HCPCS: 36415; 80053; 82272; 83605; 83735; 84484; 85025; 85610; 85730; 99284